=== PATIENT | female | born 1985 | race African-American/Black ===

== ENCOUNTER 2020-05-09 05:16 | Inpatient (IN) ==
[2020-05-09] MEDS ORDERED: FAMOTIDINE 20 MG/2 ML VIAL IV ONE (05:24)
[2020-05-09] MEDS ORDERED: CITRIC ACID/SODIUM CITRATE 30 ML UDCUP PO ONE (05:24)
[2020-05-09] MEDS ORDERED: LACTATED RINGERS 1,000 ML IV SCH (05:30)
[2020-05-09 05:57] LABS: Basophils % 0.3 % (0.0-0.8); Eosinophils % 0.3 % (0.00-10.9); Hematocrit 26.5 VOL% (35.7-47.0); Hemoglobin 7.9 GM/DL (12.0-16.0); Lymphocytes % 19.8 % (21.3-54.2); Mean Corpuscular HGB Conc 29.8 GM/DL (32-36); Mean Corpuscular Volume 68.7 FL (87-102); Mean Platelet Volume 10.7 FL (9.6-12.0); Monocytes % 8.5 % (1.7-12.7); NRBC # 0.05 10*3/uL; Neutrophils % 70.1 % (38.7-73.9); Platelet Count 208 T/CUMM (130-400); Red Blood Count 3.86 MC/CUMM (3.8-5.5); Red Cell Distribution Width 21.8 % (9.3-17.3); White Blood Count 9.9 T/CUMM (4-12)
[2020-05-09] MEDS ORDERED: ceFAZolin 3,000 MG in SYRINGE 1 EACH IV ONE (06:00)
[2020-05-09 06:10] LABS: Albumin 2.3 G/DL (3.4-5.0); Bilirubin,Total 0.7 MG/DL (0.2-1.0); Calcium 8.9 MG/DL (8.5-10.1); Osmolality,Calculated 273.7 MOS/KG (273-304); Total Protein 6.9 G/DL (6.4-8.3)
[2020-05-09 06:21] LABS: Hypochromasia 1+; Microcytosis 2+
[2020-05-09 06:22] LABS: Ovalocytes Slight; Platelet Estimate Normal; Polychromasia Slight; Target Cells Few
[2020-05-09] MEDS ORDERED: OXYTOCIN/LR 20 UNIT/1,000 ML BAG IV ONE ×3 (07:09→09:33)
[2020-05-09] MEDS ORDERED: miSOPROStoL 200 MCG TABLET ONE (07:10)
[2020-05-09] MEDS ORDERED: METHYLERGONOVINE 0.2 MG/1 ML AMP ONE (07:10)
[2020-05-09] MEDS ORDERED: CARBOPROST TROMETHAMINE 250 MCG/ML AMP IM ONE (07:10)
[2020-05-09] MEDS ORDERED: LACTATED RINGERS 1,000 ML IV ONE (07:40)
[2020-05-09 08:57] LABS: Cord Arterial Blood HCO3 22.1 MMOL/L; Cord Venous Blood HCO3 22.5 MMOL/L; Cord Venous Blood PCO2 35.9 MMHG; Cord Venous Blood PO2 23.7 MMHG
[2020-05-09 09:03] LABS: Bacteria,Urine Occasional /HPF (Few); Bilirubin,Urine Negative (Negative); Blood, Urine Negative (Negative); Glucose,Urine (UA) Negative (Negative); Ketones,Urine Negative (Negative); Mucus,Urine Occasional /LPF (Occasional); Nitrite,Urine Negative (Negative); Protein,Urine Negative; RBC,Urine <1 /HPF (0-4); Squamous Epithelial Cell,Urine Occasional /HPF (0-10); Urine Appearance CLEAR (Clear); Urine Color Yellow (Yellow); Urine Specific Gravity 1.012 (1.001-1.035); WBC,Urine <1 /HPF (0-6)
[2020-05-09] MEDS ORDERED: MEASLES/MUMPS/RUBELLA VACCINE 0.5 ML VIAL SUBCUT ONE (09:33)
[2020-05-09] MEDS ORDERED: BENZOCAINE 20%/MENTHOL 0.5% SPRAY 56 GM CAN TOP PRN (09:33)
[2020-05-09] MEDS ORDERED: oxyCODONE/ACETAMINOPHEN 5-325 MG TABLET PO PRN (09:33)
[2020-05-09] MEDS ORDERED: ACETAMINOPHEN 325 MG TABLET PO PRN (09:33)
[2020-05-09] MEDS ORDERED: ONDANSETRON 4 MG/2 ML VIAL IV PRN (09:33)
[2020-05-09] MEDS ORDERED: WITCH HAZEL PADS 100/JAR TOP PRN (09:33)
[2020-05-09] MEDS ORDERED: RHO(D) IMMUNE GLOBULIN 300 MCG SYRINGE IM ONE (09:33)
[2020-05-09] MEDS ORDERED: HYDROCORTISONE 2.5% RECTAL CREAM 30 GM TUBE TOP PRN (09:33)
[2020-05-09] MEDS ORDERED: BISACODYL 10 MG SUPP RECTAL PRN (09:33)
[2020-05-09] MEDS ORDERED: DIPH/TET/ACEL PERT BOOSTER VACCINE 0.5 ML VIAL IM ONE (09:33)
[2020-05-09] MEDS ORDERED: LANOLIN 50% CREAM 0.3 OZ TUBE TOP PRN (09:33)
[2020-05-09] MEDS ORDERED: PHENYLEPHRINE 1 MG/10 ML SYRINGE IV ONE (10:14)
[2020-05-09] MEDS ORDERED: fentaNYL 100 MCG/2 ML VIAL ONE (10:15)
[2020-05-09] MEDS ORDERED: MORPHINE 10 MG/10 ML VIAL ONE (10:16)
[2020-05-09] MEDS ORDERED: BUPIVACAINE SPINAL 0.75% 2 ML AMP SPINAL ONE (10:17)
[2020-05-09] MEDS ORDERED: diphenhydrAMINE 50 MG/1 ML VIAL IV ONE (10:25)
[2020-05-09] MEDS: IBUPROFEN 800 MG TABLET PO PRN ×2 (11:02→23:44)
[2020-05-09] MEDS ORDERED: diphenhydrAMINE 50 MG/1 ML VIAL IV PRN (14:29)
[2020-05-09] MEDS: ceFAZolin 2,000 MG in PREMIX 1 EACH IV SCH (18:46)
[2020-05-09] MEDS: DOCUSATE SODIUM 100 MG CAPSULE PO SCH (21:16)
[2020-05-09] MEDS: oxyCODONE/ACETAMINOPHEN 5-325 MG TABLET PO PRN (22:00)
[2020-05-10] MEDS: ceFAZolin 2,000 MG in PREMIX 1 EACH IV SCH (01:17)
[2020-05-10 05:56] LABS: Basophils % 0.4 % (0.0-0.8); Eosinophils # 0.2 10*3/uL (0.0-0.87); Eosinophils % 1.5 % (0.00-10.9); Hematocrit 18.1 VOL% (35.7-47.0); Immature Granulocytes % 2.2 %; Immature Granulocytes Absolute 0.23 #; Lymphocytes # 1.6 10*3/uL (1.4-4.0); Lymphocytes % 14.6 % (21.3-54.2); Mean Corpuscular HGB Conc 29.8 GM/DL (32-36); Mean Corpuscular Volume 69.1 FL (87-102); Mean Platelet Volume 10.6 FL (9.6-12.0); Monocytes % 8.8 % (1.7-12.7); NRBC # 0.02 10*3/uL; Neutrophils % 72.5 % (38.7-73.9); Platelet Count 177 T/CUMM (130-400); Red Blood Count 2.62 MC/CUMM (3.8-5.5); Red Cell Distribution Width 21.3 % (9.3-17.3); White Blood Count 10.7 T/CUMM (4-12)
[2020-05-10 06:00] LABS: Hemoglobin 5.4 GM/DL (12.0-16.0)
[2020-05-10] MEDS ORDERED: SODIUM CHLORIDE 0.9% 1,000 ML IV PRN (06:28)
[2020-05-10 06:48] LABS: Hypochromasia 1+; Microcytosis 1+; Platelet Estimate Adequate
[2020-05-10] MEDS: IBUPROFEN 800 MG TABLET PO PRN ×2 (11:06→21:21)
[2020-05-10] MEDS: DOCUSATE SODIUM 100 MG CAPSULE PO SCH ×2 (11:07→20:19)
[2020-05-10] MEDS: oxyCODONE/ACETAMINOPHEN 5-325 MG TABLET PO PRN ×2 (11:07→21:22)
[2020-05-10] MEDS ORDERED: POTASSIUM CHLORIDE 20 MEQ TABLET PO PRN (18:59)
[2020-05-10] MEDS: POTASSIUM CHLORIDE 20 MEQ TABLET PO SCH ×2 (20:19→22:22)
[2020-05-10] MEDS: MAGNESIUM HYDROXIDE SUSP 30 ML UDCUP PO SCH (20:19)
[2020-05-10] MEDS: SIMETHICONE CHEW 80 MG TABLET PO PRN (20:19)
[2020-05-10] MEDS: FERROUS SULFATE 325 MG TABLET PO SCH (20:19)
[2020-05-11] MEDS: POTASSIUM CHLORIDE 20 MEQ TABLET PO SCH ×2 (00:15→02:15)
[2020-05-11] MEDS: SIMETHICONE CHEW 80 MG TABLET PO PRN (02:15)
[2020-05-11 05:58] LABS: Basophils # 0.1 10*3/uL (0.0-0.2); Basophils % 0.4 % (0.0-0.8); Eosinophils # 0.3 10*3/uL (0.0-0.87); Hematocrit 21.6 VOL% (35.7-47.0); Hemoglobin 6.8 GM/DL (12.0-16.0); Immature Granulocytes % 0.7 %; Immature Granulocytes Absolute 0.09 #; Lymphocytes # 1.8 10*3/uL (1.4-4.0); Lymphocytes % 14.7 % (21.3-54.2); Mean Corpuscular HGB Conc 31.5 GM/DL (32-36); Mean Corpuscular Volume 71.8 FL (87-102); Mean Platelet Volume 10.7 FL (9.6-12.0); Monocytes % 6.8 % (1.7-12.7); NRBC # 0.02 10*3/uL; Neutrophils % 75.4 % (38.7-73.9); Platelet Count 164 T/CUMM (130-400); Red Blood Count 3.01 MC/CUMM (3.8-5.5); Red Cell Distribution Width 23.1 % (9.3-17.3); White Blood Count 12.2 T/CUMM (4-12)
[2020-05-11] MEDS ORDERED: LABETALOL 100 MG TABLET PO SCH (09:00)
[2020-05-11 09:32] VITALS: BP 128/77
[2020-05-11] MEDS: FERROUS SULFATE 325 MG TABLET PO SCH (10:20)
[2020-05-11] MEDS: DOCUSATE SODIUM 100 MG CAPSULE PO SCH (10:20)
[2020-05-11] MEDS: MAGNESIUM HYDROXIDE SUSP 30 ML UDCUP PO SCH (10:20)
[2020-05-11] MEDS: oxyCODONE/ACETAMINOPHEN 5-325 MG TABLET PO PRN (10:45)
== END 2020-05-11 13:15 | disposition home or self-care (01) | DRG 540 ==
LOC: N.LD 05:16 → N.OB 12:37
PROVIDERS: ADMIT Specialist; ATTEND Specialist
PROC: LDCSECT (ICD-10-PCS; 2020-05-09 09:15)